=== PATIENT | female | born 1965 | race American Indian/Alaskan Native ===

== ENCOUNTER 2017-11-04 16:34 | Emergency (ER) | payer MEDICAID ==
[2017-11-04 17:39] LABS: Basophils % (Auto) 0.4 % (0.0-1.8); Eosinophils # (Auto) 0.1 K/mm3 (0.0-0.4); Hematocrit 40.3 % (30.3-42.9); Hemoglobin 13.2 gm/dl (10.1-14.3); Lymphocytes # (Auto) 2.4 K/mm3 (1.2-5.4); Lymphocytes % (Auto) 20.3 % (13.4-35.0); Mean Corpuscular HGB Conc 33 % (30-34); Mean Corpuscular Hemoglobin 30 pg (28-32); Mean Corpuscular Volume 92 fl (79-97); Monocytes # (Auto) 0.7 K/mm3 (0.0-0.8); Monocytes % (Auto) 5.6 % (0.0-7.3); Platelet Count 308 K/mm3 (140-440); Red Blood Count 4.37 M/mm3 (3.65-5.03); Red Cell Distribution Width 13.7 % (13.2-15.2)
[2017-11-04 17:55] LABS: BUN/Creatinine Ratio 16; Blood Urea Nitrogen 13 mg/dL (7-17); Calcium 10.1 mg/dL (8.4-10.2); Hemolysis Index 3
[2017-11-04] MEDS ORDERED: VITAMIN B-1 100 MG, FOLVITE 1 MG, INFUVITE 10 ML in NACL 0.9% 1000 ML 1,000 ML IV ONE (18:02)
--- NOTE | 2017-11-04 18:57 | Emergency Department Report ---
ED Psych HPI - General Chief Complaint: Psych Stated Complaint: PSYCH Time Seen by Provider: 11/04/17 17:01 Source: patient, EMS Mode of arrival: Ambulatory Limitations: No Limitations - History of Present Illness Initial Comments: 52-year-old female with a medical history alcohol and drug abuse presents to the hospital requesting a refill her medication and needeing assistance because she is homeless. Patient lives in [facility]. Patient is here in the [place] area because she has been accepted [facility] substance abuse program. She is scheduled to be admitted into the program on Friday the . Patient states she paid a woman $40 to get a ride bank. While she was inside the bank the woman drove off with her medication and her suitcases. Patient does have a wallet in her phone. No missed the intake time for this schedule and does not senior living and does not have anywhere else to go. Patient admits to recent alcohol and cocaine use because she states she still has to have substances in her system in order to be accepted into the substance abuse program at [facility]. Patient denies any physical complaints. She denies suicidal or homicidal ideation. Patient does not have any physical complaints she is just requesting a refill her medication and assistance with a place to stay. Last dose of meds was yesterday. - Related Data Previous Rx's Medication Instructions Recorded Last Taken Type QUEtiapine [SEROquel] 25 mg PO HS #30 tablet 11/04/17 Unknown Rx busPIRone [Buspar] 5 mg PO BID #60 tablet 11/04/17 Unknown Rx lamoTRIgine [LaMICtal] 25 mg PO QDAY #30 tablet 11/04/17 Unknown Rx Allergies Allergy/AdvReac Type Severity Reaction Status Date / Time Fish Containing Products Allergy Anaphylaxis Verified 11/04/17 16:42 ED Review of Systems ROS: Stated complaint: PSYCH Other details as noted in HPI Comment: All other systems reviewed and negative ED Past Medical Hx - Past Medical History Previous Medical History?: Yes Hx Psychiatric Treatment: Yes (Substance abuse, ETOH abuse) - Surgical History Past Surgical History?: Yes Hx Appendectomy: Yes - Social History Smoking Status: Current Every Day Smoker Substance Use Type: Alcohol, Cocaine, Marijuana - Medications Home Medications: Home Medications Medication Instructions Recorded Confirmed Last Taken Type QUEtiapine [SEROquel] 25 mg PO HS #30 tablet 11/04/17 Unknown Rx busPIRone [Buspar] 5 mg PO BID #60 tablet 11/04/17 Unknown Rx lamoTRIgine [LaMICtal] 25 mg PO QDAY #30 tablet 11/04/17 Unknown Rx ED Physical Exam - General Limitations: No Limitations - Other Other exam information: General: No limitations, patient is alert in no acute distress Head exam: Atraumatic, normocephalic Eyes exam: Normal appearance ENT: Moist mucous membrane, normal oropharynx Neck exam: Normal inspection, full range of motion, no meningismus nontender Respiratory exam: Clear to auscultation bilateral, no wheezes, rales, crackles Cardiovascular: Normal rate and rhythm, normal heart sounds Abdomen: Soft, nondistended, and nontender, with normal bowel sounds, no rebound, or guarding Extremity: Full range of motion normal inspection no deformity Back: Normal Inspection, full range of motion, no tenderness Neurologic: Alert, oriented x3, cranial nerves intact, no motor or sensory deficit Psychiatric: normal affect, normal mood, calm and cooperative Skin: Warm, dry, intact ED Course Vital Signs 11/04/17 11/04/17 16:42 18:39 Temperature 97.7 F Pulse Rate 105 H 98 H Respiratory 20 20 Rate Blood Pressure 132/84 Blood Pressure 131/74 [Left] O2 Sat by Pulse 97 97 Oximetry ED Medical Decision Making - Lab Data Result diagrams: 11/04/17 17:15 11/04/17 17:15 Lab Results 11/04/17 11/04/17 11/04/17 Range/Units 17:15 17:15 17:15 WBC (4.5-11.0) K/mm3 RBC (3.65-5.03) M/mm3 Hgb (10.1-14.3) gm/dl Hct (30.3-42.9) % MCV (79-97) fl MCH (28-32) pg MCHC (30-34) % RDW (13.2-15.2) % Plt Count (140-440) K/mm3 Lymph % (Auto) (13.4-35.0) % Stearns % (Auto) (0.0-7.3) % Eos % (Auto) (0.0-4.3) % Baso % (Auto) (0.0-1.8) % Lymph # (1.2-5.4) K/mm3 Stearns # (0.0-0.8) K/mm3 Eos # (0.0-0.4) K/mm3 Baso # (0.0-0.1) K/mm3 Seg Neutrophils % (40.0-70.0) % Seg Neutrophils # (1.8-7.7) K/mm3 Sodium 137 (137-145) mmol/L Potassium 4.0 (3.6-5.0) mmol/L Chloride 95.9 L (98-107) mmol/L Carbon Dioxide 27 (22-30) mmol/L Anion Gap 18 mmol/L BUN 13 (7-17) mg/dL Creatinine 0.8 (0.7-1.2) mg/dL Estimated GFR > 60 ml/min BUN/Creatinine Ratio 16 % Glucose 112 H (65-100) mg/dL Calcium 10.1 (8.4-10.2) mg/dL Magnesium (1.7-2.3) mg/dL Total Creatine Kinase (30-135) units/L Salicylates < 0.3 L (2.8-20.0) mg/dL Acetaminophen < 5.0 L (10.0-30.0) ug/mL Plasma/Serum Alcohol (0-0.07) % 11/04/17 11/04/17 11/04/17 Range/Units 17:15 17:15 17:15 WBC 11.9 H (4.5-11.0) K/mm3 RBC 4.37 (3.65-5.03) M/mm3 Hgb 13.2 (10.1-14.3) gm/dl Hct 40.3 (30.3-42.9) % MCV 92 (79-97) fl MCH 30 (28-32) pg MCHC 33 (30-34) % RDW 13.7 (13.2-15.2) % Plt Count 308 (140-440) K/mm3 Lymph % (Auto) 20.3 (13.4-35.0) % Stearns % (Auto) 5.6 (0.0-7.3) % Eos % (Auto) 1.0 (0.0-4.3) % Baso % (Auto) 0.4 (0.0-1.8) % Lymph # 2.4 (1.2-5.4) K/mm3 Stearns # 0.7 (0.0-0.8) K/mm3 Eos # 0.1 (0.0-0.4) K/mm3 Baso # 0.0 (0.0-0.1) K/mm3 Seg Neutrophils % 72.7 H (40.0-70.0) % Seg Neutrophils # 8.7 H (1.8-7.7) K/mm3 Sodium (137-145) mmol/L Potassium (3.6-5.0) mmol/L Chloride (98-107) mmol/L Carbon Dioxide (22-30) mmol/L Anion Gap mmol/L BUN (7-17) mg/dL Creatinine (0.7-1.2) mg/dL Estimated GFR ml/min BUN/Creatinine Ratio % Glucose (65-100) mg/dL Calcium (8.4-10.2) mg/dL Magnesium (1.7-2.3) mg/dL Total Creatine Kinase 262 H (30-135) units/L Salicylates (2.8-20.0) mg/dL Acetaminophen (10.0-30.0) ug/mL Plasma/Serum Alcohol < 0.01 (0-0.07) % //18 Range/Units 17:15 WBC (4.5-11.0) K/mm3 RBC (3.65-5.03) M/mm3 Hgb (10.1-14.3) gm/dl Hct (30.3-42.9) % MCV (79-97) fl MCH (28-32) pg MCHC (30-34) % RDW (13.2-15.2) % Plt Count (140-440) K/mm3 Lymph % (Auto) (13.4-35.0) % Stearns % (Auto) (0.0-7.3) % Eos % (Auto) (0.0-4.3) % Baso % (Auto) (0.0-1.8) % Lymph # (1.2-5.4) K/mm3 Stearns # (0.0-0.8) K/mm3 Eos # (0.0-0.4) K/mm3 Baso # (0.0-0.1) K/mm3 Seg Neutrophils % (40.0-70.0) % Seg Neutrophils # (1.8-7.7) K/mm3 Sodium (137-145) mmol/L Potassium (3.6-5.0) mmol/L Chloride (98-107) mmol/L Carbon Dioxide (22-30) mmol/L Anion Gap mmol/L BUN (7-17) mg/dL Creatinine (0.7-1.2) mg/dL Estimated GFR ml/min BUN/Creatinine Ratio % Glucose (65-100) mg/dL Calcium (8.4-10.2) mg/dL Magnesium 2.00 (1.7-2.3) mg/dL Total Creatine Kinase (30-135) units/L Salicylates (2.8-20.0) mg/dL Acetaminophen (10.0-30.0) ug/mL Plasma/Serum Alcohol (0-0.07) % - Medical Decision Making HR improved without intervention. Patient is not having symptoms. She is not psychotic, denies suicidality and homicidal ideation. She admits to alcohol and cocaine abuse with no signs of rhabdo or acute intoxication at this time. Patient will receive a one-month refill in her medication and provided senior living resources. Patient be encouraged to continue with her outpatient treatment plan. - Differential Diagnosis medication refill, psychosis, bipolar, drug abuse Critical Care Time: No Critical care attestation.: If time is entered above; I have spent that time in minutes in the direct care of this critically ill patient, excluding procedure time. ED Disposition Clinical Impression: Alcohol abuse, Cocaine abuse, Medication refill, Psychiatric disorder Disposition: DC-01 TO HOME OR SELFCARE Is pt being admited?: No Condition: Stable Instructions: Cocaine Abuse (ED), Abuse of Alcohol (ED) Prescriptions: busPIRone [Buspar] 5 mg PO BID #60 tablet lamoTRIgine [LaMICtal] 25 mg PO QDAY #30 tablet QUEtiapine [SEROquel] 25 mg PO HS #30 tablet Referrals: PRIMARY CARE, [Primary Care Provider] - 3-5 Days [facility] [Provider Group] - 3-5 Days [facility] psychiatric doctor [Other] - 3-5 Days Time of Disposition: 19:09
[2017-11-04 19:39] VITALS: BP 132/81
== END 2017-11-04 19:38 | disposition home or self-care (01) ==
LOC: ED 16:34
DX: F23 Brief psychotic disorder (principal); F10.10 Alcohol abuse, uncomplicated; F14.10 Cocaine abuse, uncomplicated; Z76.0 Encounter for issue of repeat prescription; Z59.0 Homelessness; Z91.013 Allergy to seafood; F17.200 Nicotine dependence, unspecified, uncomplicated; Z90.49 Acquired absence of other specified parts of digestive tract
CPT/HCPCS: 36415; 80048; 82550; 83735; 85025; 99283; G0480; 80320; J3411; J7030